=== PATIENT | male | born 1980 | race Caucasian/White ===

== ENCOUNTER 2017-05-31 22:01 | Emergency (ER) | payer OTHER ==
[~2017-05-31] VITALS: Ht 193 cm; Wt 99.8 kg
[2017-05-31] MEDS ORDERED: IBUPROFEN800 MG PO (22:51)
[2017-06-01] MEDS ORDERED: POTASSIUM CHLO20 ME1 PO (00:29)
== END 2017-06-01 00:50 | disposition home or self-care (01) ==
LOC: ED 22:01
DX: E87.6 Hypokalemia (principal); F41.9 Anxiety disorder, unspecified; Z86.14 Personal history of Methicillin resistant Staphylococcus aureus infection; F17.200 Nicotine dependence, unspecified, uncomplicated
CPT/HCPCS: 80053; 85025; 99284